=== PATIENT | female | born 1960 | race Caucasian/White ===

== ENCOUNTER 2017-09-16 09:59 | Observation (INO) | payer BC ==
[~2017-09-16] VITALS: Ht 174 cm; Wt 91.3 kg
[~2017-09-16 09:59] MED LIST: COCAINE TOPICAL SOLN 4%, 4ML ONE; EPINEPHRINE 1 MG/ML, 1ML ONE; GELFILM OPHTHALMIC DRESSING ONE; LIDOCAINE/PF 1%, 30ML ONE; NEO/BACI/POLY/HC OINT 15GM ONE; OXYMETAZOLINE NASAL SPRAY 0.05%, 15ML ONE
[2017-09-16] MEDS ORDERED: FAMO40TA61 PO (10:52)
[2017-09-16] MEDS ORDERED: LASIX PO (10:52)
[2017-09-16] MEDS ORDERED: MECLAZINE PO (10:52)
[2017-09-16] MEDS ORDERED: VITAMIN D PO (10:52)
[2017-09-16] MEDS ORDERED: ALPR1TAB2 PO (10:52)
[2017-09-16] MEDS ORDERED: ESCI20TA10 PO (10:52)
[2017-09-16] MEDS ORDERED: QUET25TA5 PO (10:52)
[2017-09-16] MEDS ORDERED: TOPI25TA32 PO (10:52)
[2017-09-16 10:56] VITALS: BP 134/83
[2017-09-16] MEDS ORDERED: LIDOCAINE-MPF 1%, 2ML INFIL ONE (11:00)
[2017-09-16] MEDS ORDERED: ONDANSETRON ODT 8 MG PO ONE (11:00)
[2017-09-16] MEDS ORDERED: GABAPENTIN 300 MG CAPSULE PO ONE (11:00)
[2017-09-16] MEDS ORDERED: ACETAMINOPHEN 500 MG TABLET PO ONE (11:00)
[2017-09-16 11:01] LABS: ALANINE AMINOTRANSFERASE 22 U/L (12-78); ANION GAP 7 mmol/L (5-15); CALCIUM 8.6 mg/dL (8.5-10.1); CHLORIDE 112 mmol/L (98-107)
[2017-09-16 11:03] LABS: ALKALINE PHOSPHATASE 70 U/L (45-117); BILIRUBIN,TOTAL 0.7 mg/dL (0.2-1.0); CREATININE 1.24 mg/dL (0.55-1.02); TOTAL PROTEIN 6.9 g/dL (6.4-8.2)
[2017-09-16] MEDS: LACTATED RINGERS 1,000 ML IV SCH (11:06)
[2017-09-16] MEDS ORDERED: MIDAZOLAM 1 MG/ML, 2ML ONE (12:22)
[2017-09-16] MEDS ORDERED: FENTANYL PF 250 MCG/5ML ONE (12:22)
[2017-09-16] MEDS ORDERED: PHENYLEPHRINE 10 MG/ML ONE (13:08)
[2017-09-16] MEDS ORDERED: EPHEDRINE 50 MG/ML, 1ML ONE (13:57)
[2017-09-16] MEDS ORDERED: hydrALAzine 20 MG/ML, 1ML IV PRN (14:00)
[2017-09-16] MEDS ORDERED: DIAZEPAM 5 MG/ML, 2ML IVPush PRN (14:00)
[2017-09-16] MEDS ORDERED: SCOPOLAMINE PATCH, 1.5MG PATCH.TD72 TD PRN (14:00)
[2017-09-16] MEDS ORDERED: OXYcodone 5 MG/5 ML ORAL.SOL UDC PO PRN (14:00)
[2017-09-16] MEDS ORDERED: ONDANSETRON ODT 8 MG PO PRN (14:00)
[2017-09-16] MEDS ORDERED: DIPHENHYDRAMINE 50 MG/ML, 1ML IVPush PRN (14:00)
[2017-09-16] MEDS ORDERED: MIDAZOLAM 1 MG/ML, 2ML IV PRN (14:00)
[2017-09-16] MEDS ORDERED: ALBUTEROL/IPRATROPIUM 2.5MG/0.5MG, 3 ML NPPB PRN (14:00)
[2017-09-16] MEDS ORDERED: HYDROmorphone 1 MG/ML, 1ML IV PRN (14:00)
[2017-09-16] MEDS ORDERED: METOCLOPRAMIDE 5 MG/ML, 2ML IV PRN (14:00)
[2017-09-16] MEDS ORDERED: EPHEDRINE 50 MG/ML, 1ML IM PRN (14:00)
[2017-09-16] MEDS ORDERED: LABETALOL 5MG/ML, 20ML IV PRN (14:00)
[2017-09-16] MEDS ORDERED: MORPHINE SULFATE 4 MG/ML, 1ML IVPush PRN (14:00)
[2017-09-16] MEDS ORDERED: PROMETHAZINE 25 MG/ML, 1ML IV PRN (14:00)
[2017-09-16] MEDS ORDERED: MEPERIDINE/PF 25MG/0.5ML IVPush PRN (14:00)
[2017-09-16] MEDS ORDERED: CEFAZOLIN 1,000 MG ONE (15:36)
[2017-09-16] MEDS ORDERED: DEXAMETHASONE 4 MG/ML, 1ML ONE (15:36)
[2017-09-16] MEDS ORDERED: SUCCINYLCHOLINE 20 MG/ML, 10ML ONE (15:36)
[2017-09-16] MEDS ORDERED: PROPOFOL 10 MG/ML, 20ML ONE (15:36)
[2017-09-16] MEDS ORDERED: ONDANSETRON 2MG/ML, 2ML ONE ×2 (15:36)
[2017-09-16] MEDS ORDERED: FENTANYL PF 100 MCG/2ML ONE (15:59)
[2017-09-16] MEDS ORDERED: OXYcodone 5 MG/5 ML ORAL.SOL UDC ONE (15:59)
[2017-09-16] MEDS: FENTANYL PF 100 MCG/2ML IV PRN ×2 (16:03→16:26)
[2017-09-16] MEDS ORDERED: FAMOTIDINE 40 MG TABLET PO SCH (21:15)
[2017-09-16] MEDS ORDERED: QUETIAPINE 25MG TABLET PO SCH (21:16)
[2017-09-16] MEDS ORDERED: MECLIZINE CHEWABLE 25 MG TAB PO SCH (21:16)
[2017-09-16] MEDS ORDERED: TOPIRAMATE 25 MG TABLET PO SCH (21:17)
[2017-09-16] MEDS: LASIX MC SCH (21:30)
[2017-09-16] MEDS: LEXAPRO MC SCH (21:30)
[2017-09-16 23:30] VITALS: BP 111/72
[2017-09-17 02:54] VITALS: BP 122/70
[2017-09-17] MEDS: LACTATED RINGERS 1,000 ML IV SCH (03:39)
[2017-09-17] MEDS: LEXAPRO MC SCH (05:27)
[2017-09-17] MEDS: LASIX MC SCH (05:27)
[2017-09-17 07:05] VITALS: BP 102/64
[2017-09-17] MEDS ORDERED: HYDR-3241 PO (08:24)
[2017-09-17] MEDS ORDERED: CEFD300C37 PO (08:25)
[2017-09-17] MEDS ORDERED: ERGOCALCIFEROL 50,000 UNIT CAPSULE PO SCH (21:30)
== END 2017-09-17 08:43 | disposition home or self-care (01) ==
LOC: OUT 09:59 → 4NOR 19:30 → OUT 20:57 → 4NOR 20:58 → DCLOUNGE 09-17 08:35
PROVIDERS: ADMIT Specialist; ATTEND Specialist
DX: J34.2 Deviated nasal septum (principal); J34.3 Hypertrophy of nasal turbinates; D49.2 Neoplasm of unspecified behavior of bone, soft tissue, and skin
CPT/HCPCS: 20912; 30465; 30520; 30630; 36415; 80053; 88305; G0378; J0171; J0330; J0690; J1100; J2250; J2370; J2704; J3010; J3490; J7120; Q0162; J2405